=== PATIENT | male | born 1975 | race Caucasian/White ===

== ENCOUNTER 2018-06-08 19:25 | Emergency (ER) | payer OTHER ==
[2018-06-08 19:41] VITALS: RESP 20; TEMP 98.8; O2SAT 97
[2018-06-08] MEDS ORDERED: APAP/HYDROCODONE 325/5 TAB PO ONE (19:41)
[2018-06-08] MEDS ORDERED: KETOROLAC TROMETHAMINE 30 MG/ML SOL IM ONE (19:41)
[2018-06-08 21:27] VITALS: BP 165/110; PULSE 81
== END 2018-06-08 20:58 | disposition home or self-care (01) | DRG 605 ==
LOC: ED 19:25
DX: S60.211A Contusion of right wrist, initial encounter (principal)
CPT/HCPCS: 73110; 96372; 99283; 99284; J1885; A9270-GY